=== PATIENT | female | born 1950 | race Caucasian/White ===

== ENCOUNTER 2018-04-17 09:54 | Inpatient (IN) | payer MEDICARE, MEDICAID ==
[~2018-04-17] VITALS: Ht 167.6 cm; Wt 103.2 kg
[2018-04-17 10:55] LABS: BASOPHILS % 0.7 % (0.0-2.0); EOSINOPHILS % 1.8 % (0.0-5.0); HEMOGLOBIN. 14.7 g/dL (12.0-16.0); LYMPHOCYTES % 31.4 % (20.0-50.0); MEAN CORPUSCULAR HEMOGLOBIN 28.3 pg (28.0-32.0); MEAN CORPUSCULAR VOLUME 86.7 fL (81.0-99.0); MEAN PLATELET VOLUME 9.1 fl (7.4-10.4); MONOCYTES % 12.7 % (2.0-8.0); NEUTROPHILS % 53.4 % (40.0-76.0); PLATELET 176 x1000/uL (130-400); RED BLOOD CELL COUNT 5.19 mill/uL (4.2-5.4); RED CELL DISTRIBUTION WIDTH 16.1 % (11.6-14.6)
[2018-04-17 10:58] LABS: CHLORIDE 107 mEq/L (98-107)
[2018-04-17 11:00] LABS: PROTHROMBIN TIME 9.6 sec (9.1-11.1)
[2018-04-17] MEDS ORDERED: ASPIRIN 81MG TABLET PO NR (12:00)
[2018-04-17 13:59] LABS: CLARITY URINE CLEAR (CLEAR); COLOR URINE YELLOW (YELLOW); KETONES URINE 1+ (NEGATIVE); LEUKOCYTE ESTERASE URINE 1+ (NEGATIVE); NITRITE URINE NEGATIVE (NEGATIVE); OCCULT BLOOD URINE NEGATIVE (NEGATIVE); PROTEIN URINE TRACE (NEGATIVE)
[2018-04-17 17:00] VITALS: BP 131/77
[2018-04-17] MEDS ORDERED: ONDANSETRON HCL 4MG/2ML INJ IV PRN (17:15)
[2018-04-17] MEDS ORDERED: HYDROCODONE/ACETAMINOPHEN 5/325MG TABLET PO PRN (17:15)
[2018-04-17] MEDS ORDERED: LORAZEPAM 2MG/ML CPJ IV PRN (17:15)
[2018-04-17] MEDS ORDERED: MORPHINE SULFATE 4 MG/ML CPJ (NOT FOR IM USE) IV PRN (17:15)
[2018-04-17] MEDS ORDERED: IPRATROPIUM/ALBUTEROL 0.5-3(2.5)MG/3ML NEB INH PRN (17:15)
[2018-04-17] MEDS: METHYLPREDNISOLONE SOD SUCC 125 MG/2 ML VIAL IV SCH (18:23)
[2018-04-17] MEDS: THIAMINE HCL 100MG TABLET PO SCH (18:24)
[2018-04-17 20:00] VITALS: BP 134/56
[2018-04-17] MEDS ORDERED: LEVOFLOXACIN 500MG PREMIX 100 ML IV SCH (20:00)
[2018-04-17] MEDS: ENOXAPARIN 30MG/0.3ML SYR SUBCUT SCH (20:22)
[2018-04-17] MEDS: METRONIDAZOLE 500 MG PREMIX 100 ML IV SCH (22:20)
[2018-04-18] VITALS: BP 136/94
[2018-04-18] MEDS: METHYLPREDNISOLONE SOD SUCC 125 MG/2 ML VIAL IV SCH ×3 (00:05→12:43)
[2018-04-18 04:00] VITALS: BP 130/76
[2018-04-18] MEDS: METRONIDAZOLE 500 MG PREMIX 100 ML IV SCH ×2 (05:25→14:00)
[2018-04-18 08:00] VITALS: BP 130/68
[2018-04-18] MEDS: ASPIRIN 81MG EC TABLET PO SCH (09:53)
[2018-04-18] MEDS: THIAMINE HCL 100MG TABLET PO SCH (09:53)
[2018-04-18] MEDS: ENOXAPARIN 30MG/0.3ML SYR SUBCUT SCH ×2 (09:54→20:51)
[2018-04-18 12:00] VITALS: BP 126/79
[2018-04-18 16:00] VITALS: BP 117/65
[2018-04-18 17:47] LABS: BASOPHILS % 0.3 % (0.0-2.0); HEMATOCRIT. 43.8 % (36.0-48.0); HEMOGLOBIN. 14.4 g/dL (12.0-16.0); LYMPHOCYTES % 15.2 % (20.0-50.0); MEAN CORPUSCULAR HEMOGLOBIN 28.5 pg (28.0-32.0); MEAN CORPUSCULAR VOLUME 86.6 fL (81.0-99.0); MEAN PLATELET VOLUME 9.1 fl (7.4-10.4); MONOCYTES % 5.5 % (2.0-8.0); PLATELET 190 x1000/uL (130-400); RED BLOOD CELL COUNT 5.05 mill/uL (4.2-5.4); RED CELL DISTRIBUTION WIDTH 16.3 % (11.6-14.6)
[2018-04-18 17:55] LABS: CHLORIDE 108 mEq/L (98-107)
[2018-04-18 20:00] VITALS: BP_SYST 112; BP_SYST 115; BP_DIAS 61; BP_DIAS 65
[2018-04-19] VITALS (7 sets, daily range): BP systolic 117–163; BP diastolic 60–85
[2018-04-19 07:06] LABS: CHLORIDE 109 mEq/L (98-107)
[2018-04-19 07:24] LABS: BASOPHILS % 0.4 % (0.0-2.0); EOSINOPHILS % 0.1 % (0.0-5.0); HEMATOCRIT. 43.5 % (36.0-48.0); HEMOGLOBIN. 14.2 g/dL (12.0-16.0); LYMPHOCYTES % 17.9 % (20.0-50.0); MEAN CORPUSCULAR HEMOGLOBIN 28.3 pg (28.0-32.0); MEAN PLATELET VOLUME 9.3 fl (7.4-10.4); NEUTROPHILS % 69.6 % (40.0-76.0); PLATELET 187 x1000/uL (130-400); RED CELL DISTRIBUTION WIDTH 16.3 % (11.6-14.6)
[2018-04-19] MEDS: ENOXAPARIN 30MG/0.3ML SYR SUBCUT SCH ×2 (09:19→21:49)
[2018-04-19] MEDS: THIAMINE HCL 100MG TABLET PO SCH (09:19)
[2018-04-19] MEDS: ASPIRIN 81MG EC TABLET PO SCH (09:19)
[2018-04-19] MEDS: CLONIDINE 0.1MG TABLET PO PRN (17:09)
[2018-04-19 22:04] LABS: CREATINE KINASE 341 IU/L (26-192)
[2018-04-19 22:05] LABS: CREATINE KINASE MB FRACTION 1.7 ng/mL (0.5-3.6)
[2018-04-20] VITALS: BP 139/63
[2018-04-20 04:00] VITALS: BP 142/67
[2018-04-20 08:00] VITALS: BP 161/86
[2018-04-20] MEDS: CLONIDINE 0.1MG TABLET PO PRN (09:05)
[2018-04-20] MEDS: THIAMINE HCL 100MG TABLET PO SCH (09:05)
[2018-04-20] MEDS: ASPIRIN 81MG EC TABLET PO SCH (09:05)
[2018-04-20] MEDS: ENOXAPARIN 30MG/0.3ML SYR SUBCUT SCH (09:06)
[2018-04-20 09:44] VITALS: BP 142/88
[2018-04-20 09:51] VITALS: BP 142/88
== END 2018-04-20 12:05 | disposition home or self-care (01) | DRG 690 ==
LOC: ER 10:26 → EDBEDREQ 12:02 → ENRESERV 15:42 → 8WST 17:06
PROVIDERS: ADMIT Internal Medicine Nephrology; ATTEND Internal Medicine Nephrology
DX: N39.0 Urinary tract infection, site not specified (principal); R07.89 Other chest pain; K52.9 Noninfective gastroenteritis and colitis, unspecified; E66.01 Morbid (severe) obesity due to excess calories; I10 Essential (primary) hypertension; Z68.36 Body mass index [BMI] 36.0-36.9, adult; Z90.49 Acquired absence of other specified parts of digestive tract
CPT/HCPCS: 36415; 71045; 74176; 80048; 82550; 82553; 83880; 84484; 93005; 93306; 99285; C1893; J1650; J1956; J2930; J3490; J7040